=== PATIENT | male | born 1935 | race Caucasian/White ===

== ENCOUNTER 2017-05-04 16:30 | Emergency (ER) | payer SELFPAY ==
[~2017-05-04] VITALS: Ht 228.6 cm; Wt 63.5 kg
[2017-05-04 17:22] LABS: CARBON DIOXIDE 29 mmol/L (21-32); CHLORIDE 106 mmol/L (98-107); CREATININE 1.7 mg/dL (0.6-1.3); GLUCOSE 194 mg/dL (74-106); POTASSIUM 3.9 mmol/L (3.5-5.1); UREA NITROGEN, BLOOD 25 mg/dL (7-18)
[2017-05-04 17:23] LABS: BASOPHILS % (AUTO) 0.7 % (0.0-2.0); EOSINOPHILS # (AUTO) 0.1 K/uL (0.0-0.7); EOSINOPHILS % (AUTO) 1.3 % (0.0-7.0); HEMATOCRIT 33.9 % (36.7-47.1); HEMOGLOBIN 11.1 g/dL (12.5-16.3); LYMPHOCYTES # (AUTO) 0.4 K/uL (20.0-40.0); MEAN CORPUSCULAR HEMOGLOBIN 29.4 uug (23.8-33.4); MEAN CORPUSCULAR HGB CONC 33 g/dL (32.5-36.3); MEAN CORPUSCULAR VOLUME 89.5 fL (73.0-96.2); MONOCYTES # (AUTO) 0.5 K/uL (2.0-10.0); MONOCYTES % (AUTO) 6.8 % (0.0-11.0); NEUTROPHILS # (AUTO) 5.9 K/uL (1.8-8.9); NEUTROPHILS % (AUTO) 85.2 % (38.5-71.5); PLATELET COUNT (AUTO) 104 K/uL (152-348); RED BLOOD CELL COUNT(AUTO) 3.79 MIL/uL (4.06-5.63)
--- NOTE | 2017-05-04 17:27 | NUR ---
MARILUZ consult requested by ED doctor, Dr. Kaminski. Patient is an elderly male who was brought in by paramedics. Paramedics report that patient was found on the [address] in front of an apartment building, near [facility] (exact address [address] [facility]). Patient is oriented x 1, states his name is Handy Morales. Patient is Farsi speaking only. According to the paramedics, residents of the apartment complex where patient was found did not know who he was and stated that he did not live in that building. MARILUZ and SANDHYA Siegel met with patient. According to Robbin, who speaks Farsi, stated that patient was not able to provide any relevant information. Patient has a medical bracelet that states his name and medical condition. RN Robbin checked patient's pockets for any identifying information, but none was found. SW searched patient's name on [employer] and was able to find possible relatives, including Camila Morales and Nery Dent. SW asked Josei to asked patient who these individuals were, and patient was able to confirm that Nery Dent was his daughter. SW called the phone number listed for Nery on [employer] [phone], but it was disconnected. Since Camila Morales is related to Nery (according to [employer]), SW tried to call Camila at [phone] and [phone] but both phone numbers were also disconnected. MARILUZ consulted with Dr. Kaminski, and it was agreed that SW would contact the police department to ask for assistance in locating patient's family. MARILUZ contacted [facility] [phone] and requested police assistance; was informed by dispatcher that they will send officers to the ED. Officers (#[id number]) and Officer Uri (#[id number]) arrived to the ED. MARILUZ met with the officers and discussed case and the assistance required from them. Officer Uri was able to find patient's home address ([address], [place]) and daughter's address ([address] [place] [address], [place]) through their computer system. MARILUZ consulted with Dr. Kaminski regarding plan of care and discharge plans, and Dr. Kaminski stated that patient was cleared for discharge, but wanted to ensure that officers could locate family/escort him home. Officers stated that they can take patient to the [place] address to see if anyone was home, and if necessary would then take him to the police station until family was notified. MARILUZ and Dr. Kaminski were in agreement. SANDHYA Siegel spoke with patient in [facility] and explained that officers would be taking home. Patient left on foot with the officers.
--- NOTE | 2017-05-04 17:40 | NUR ---
[employer] AT BEDSIDE.
--- NOTE | 2017-05-04 18:04 | NUR ---
D[facility] PT TO [employer]. [employer] TRY TO TAKE THE PT TO THE ADDRESS THEY HAD WITH THE HELP OF KATE THE [employer] OPERATOR. PT CAME WITH 305 $. [employer] AWARE OF THE MONEY IN THE POCKET. PT HAD NO OTHER VALUABLE EXCEPT THE MONEY. NO KEYS.
[2017-05-04 18:11] VITALS: BP 121/64
== END 2017-05-04 18:04 | disposition home or self-care (01) ==
LOC: EDBD 16:31 → ER 16:31
DX: F03.90 Unspecified dementia, unspecified severity, without behavioral disturbance, psychotic disturbance, mood disturbance, and anxiety (principal)
CPT/HCPCS: 36415; 80048; 85025; 85730; 93005; 99285; A4663